=== PATIENT | female | born 1980 | race Caucasian/White ===

== ENCOUNTER 2018-07-17 18:35 | Outpatient (REF) | payer MEDICAID, SELFPAY ==
[2018-07-18 15:35] LABS: Chlamydia Result Negative; GC Result Negative; Specimen Description CERVIX
== END 2018-07-17 18:55 ==
LOC: LBN 18:35
PROVIDERS: PCP Nurse Practitioner; Visit Provider Nurse Practitioner Family
DX: Z11.3 Encounter for screening for infections with a predominantly sexual mode of transmission (principal); R10.2 Pelvic and perineal pain
CPT/HCPCS: 87491; 87591; 87086

== ENCOUNTER 2018-07-30 00:55 | Outpatient (CLI) | payer MEDICAID, SELFPAY ==
--- NOTE | 2018-07-30 07:51 | DI.US_ITS ---
SYMPTOM/DIAGNOSIS: PELVIC PAIN, R10.2, PT HAS IUD PELVIC ULTRASOUND: The uterus measures 8.9 cm. in length, 5.0 cm. in height and 6.1 cm. in width with an endometrial stripe thickness of 2.7 mm. An IUD is demonstrated in the endometrium. Note is made of multiple small Nabothian cysts in the cervix. The right ovary measures 2.5 by 1.7 by 2.5 cm. The left ovary measures 3.6 by 2.7 by 3.5 cm. In the left ovary, there is a 3 by 2.3 by 3.4 cm. cyst. There is no evidence of free fluid in the pelvis. The kidneys are intact. SUMMARY: An IUD is demonstrated. Note is made of a 3 by 2.3 by 3.4 cm. left ovarian cyst. Also Nabothian cysts are seen.
== END 2018-07-30 01:15 ==
PROVIDERS: PCP Nurse Practitioner; Visit Provider Nurse Practitioner Family
DX: R10.2 Pelvic and perineal pain (principal); Z97.5 Presence of (intrauterine) contraceptive device; N83.292 Other ovarian cyst, left side; N88.8 Other specified noninflammatory disorders of cervix uteri
CPT/HCPCS: 76830; 76856